=== PATIENT | female | born 1975 | race Caucasian/White ===

== ENCOUNTER 2018-12-23 21:36 | Emergency (ER) | payer SELFPAY ==
[~2018-12-23] VITALS: Ht 162.6 cm; Wt 97.5 kg
[2018-12-23 21:39] VITALS: BP 150/90
--- NOTE | 2018-12-23 21:42 | NUR ---
TO LOBBY A/W BED, AMBULATORY
--- NOTE | 2018-12-23 22:37 | NUR ---
PT AMBULATED TO ER BED 2
[2018-12-23] MEDS ORDERED: KETOROLAC 60 MG/2 ML VIAL IM ONE (23:30)
[2018-12-24] MEDS ORDERED: MORPHINE SULFATE 2 MG/ML SYR IVP ONE (00:45)
[2018-12-24] MEDS ORDERED: NACL 0.9% 1,000 ML IV ONE (00:45)
[2018-12-24 01:13] LABS: BASOPHILS % (AUTO) 0.4 % (0.0-2.0); EOSINOPHILS # (AUTO) 0.2 K/uL (0-0.4); EOSINOPHILS % (AUTO) 2.8 % (0.0-4.0); HEMATOCRIT 36.2 % (36-48); LYMPHOCYTES % (AUTO) 34.4 % (20.5-51.1); MEAN CORPUSCULAR HEMOGLOBIN 29 pg (27-31); MEAN CORPUSCULAR HGB CONC 33 g/dL (33-37); MEAN CORPUSCULAR VOLUME 88.8 fL (80-94); MONOCYTES # (AUTO) 0.5 K/uL (0.8-1.0); MONOCYTES % (AUTO) 5.8 % (1.7-9.3); NEUTROPHILS # (AUTO) 4.9 K/uL (1.8-7.7); NEUTROPHILS % (AUTO) 56.6 % (42.2-75.2); PLATELET COUNT (AUTO) 340 K/uL (140-450); RED BLOOD CELL COUNT(AUTO) 4.07 MIL/uL (4.20-5.40); RED CELL DISTRIBUTION WIDTH 14.3 % (11.6-13.7); WHITE BLOOD COUNT (AUTO) 8.6 K/uL (4.8-10.8)
[2018-12-24 01:33] LABS: PROTHROMBIN TIME 9.8 secs (10.8-13.4)
[2018-12-24 01:37] LABS: ALBUMIN 3.3 g/dL (3.4-5.0); ANION GAP 11.4 (8-16); CARBON DIOXIDE 27.7 mmol/L (21-32); CREATININE 0.7 mg/dL (0.6-1.3); POTASSIUM 4.1 mmol/L (3.5-5.1); TOTAL BILIRUBIN 0.5 mg/dL (0.0-1.0)
[2018-12-24 02:30] VITALS: BP 132/78
--- NOTE | 2018-12-24 02:30 | NUR ---
DISCHARGE PAPERWORK GIVEN. 0/10 PAIN. VSS. NO N/V. RX FOR TRAMADOL, MOTRIN, AND ZOFRAN GIVEN. SIDE EFFECTS EXPLAINED. INSTRUCTED TO F/U WITH PCP AND WHEN TO RETURN TO ER. VERBALIZED UNDERSTANDING OF DC INSTRUCTIONS. ALL QUESTIONS ANSWERED.
== END 2018-12-24 02:30 | disposition home or self-care (01) ==
LOC: MED 21:36
DX: N83.202 Unspecified ovarian cyst, left side (principal)
CPT/HCPCS: 36415; 76856; 80053; 81002; 81025; 85025; 85610; 85730; 87040; 96372; 96374; 99284; J1885; J2270; J7030; Q0092